=== PATIENT | male | born 1960 | race Caucasian/White ===

== ENCOUNTER 2018-04-19 11:20 | Day surgery (SDC) | payer OTHER ==
[2018-04-19] VITALS (7 sets, daily range): BP systolic 111–134; BP diastolic 56–89; PULSE 84–107; TEMP 97.9–98.5
[~2018-04-19] VITALS: Ht 182.9 cm; Wt 87.4 kg
[~2018-04-19 11:20] MED LIST: CEPHALEXIN500 M1 PO; COZAAR100 MG PO; LIPITOR 10MG10 MG PO; PRILOSEC 20MG20 MG PO; TYLENOL W/COD1 UDTAB PO
[2018-04-19] MEDS ORDERED: ROXICODONE 55 MG/TAB PO (16:27)
== END 2018-04-19 17:35 | disposition home or self-care (01) ==
LOC: SDCO 11:20
DX: K40.20 Bilateral inguinal hernia, without obstruction or gangrene, not specified as recurrent (principal); I10 Essential (primary) hypertension; E78.00 Pure hypercholesterolemia, unspecified; K21.9 Gastro-esophageal reflux disease without esophagitis; Z80.0 Family history of malignant neoplasm of digestive organs; Z83.3 Family history of diabetes mellitus
CPT/HCPCS: A4314; C1781; J0690; J1100; J1885; J2370; J2405; J2704; J3010; J7120

== ENCOUNTER 2021-03-18 08:45 | Day surgery (SDC) | payer OTHER ==
[~2021-03-18] VITALS: Ht 182.9 cm; Wt 88.1 kg
[~2021-03-18 08:45] MED LIST changes: +ROXICODONE 55 MG/TAB PO
[2021-03-18] MEDS ORDERED: BENICAR40 MG PO (09:05)
--- NOTE | 2021-03-18 09:30 | NUR ---
PATIENT AND AMBULATED INTO ENDO UNIT WITH STEADY GAIT. ALERT AND ORIENTED X 3. CONSENT EXPLAINED AND PATIENT SIGNED. ASSESSMENT COMPLETED. LUNGS CTA. HEART S1S2, REGULAR, BOWEL SOUNDS HEARD, PULSES +2. IV STARTED TO RIGHT HAND WITH 20 GAUGE FIRST ATTEMPT. PATIENT BECOMES LIGHTHEADED AND SWEATY. CHAIR RECLINED AND COOL COMPRESS APPLIED TO FORHEAD. IV FLUIDS AT CONSTANT DRIP. [id number] PATIENT STATES HE FEELS BETTER. AMBULATED WITH 1 ASSIT TO RESTROOM WITH STEADY GAIT.
[2021-03-18 09:38] VITALS: BP 116/86; PULSE 90; TEMP 98.2
[2021-03-18 10:55] VITALS: BP 97/63; PULSE 82
--- NOTE | 2021-03-18 10:55 | NUR ---
PATIENT TO RECOVERY BAY 4 POST PROCEDURE ACCOMPANIED BY Osbaldo PALOMO RN. PATIENT AMBULATORY TO CHAIR WITH 1 PERSON ASSIST. MADE COMFORTABLE IN CHAIR, GIVEN WARM BLANKET. GIVEN MUFFIN AN COFFEE. NO NAUSEA OR PAIN. REPORT FROM KRYSTEN HOPKINS. VITAL SIGNS DONE AND WNL.
[2021-03-18 11:10] VITALS: BP 94/69; PULSE 77
--- NOTE | 2021-03-18 11:20 | NUR ---
IV SITE TO RIGHT HAND DISCONTINUED. NO REDNESS OR SWELLING. PRESSURE APPLIED AND SECURED WITH 2X2 AND COBAN.
[2021-03-18 11:25] VITALS: BP 106/76; PULSE 76
--- NOTE | 2021-03-18 11:28 | NUR ---
PATIENT UP TO CHANGE OUT OF GOWN AND UP TO BATHROOM. STABLE ON FEET.
--- NOTE | 2021-03-18 11:32 | NUR ---
DISMISSAL INSTRUCTIONS GIVEN AND REVIEWED VERBALLY. PATIENT DENIES QUESTIONS AND GIVES VERBAL UNDERSTANDING. PATIENT SIGNS IN ACKNOWLEDGMENT OF RECEIPT.
--- NOTE | 2021-03-18 11:40 | NUR ---
PATIENT DISMISSED IN STABLE CONDITION TO HOME. PATIENT TO VEHICLE WITH WAITING MULE TENDER VIA WHEELCHAIR ESCORTED BY STAFF.
== END 2021-03-18 11:40 | disposition home or self-care (01) ==
LOC: SDCO 08:45
DX: Z12.11 Encounter for screening for malignant neoplasm of colon (principal); D12.4 Benign neoplasm of descending colon; K57.30 Diverticulosis of large intestine without perforation or abscess without bleeding; K64.0 First degree hemorrhoids; K21.9 Gastro-esophageal reflux disease without esophagitis; K21.00 Gastro-esophageal reflux disease with esophagitis, without bleeding; E78.5 Hyperlipidemia, unspecified; I10 Essential (primary) hypertension; Z85.828 Personal history of other malignant neoplasm of skin
CPT/HCPCS: J2704; J7030